=== PATIENT | female | born 1970 | race Caucasian/White ===

== ENCOUNTER 2018-03-27 23:32 | Emergency (ER) | payer SELFPAY ==
--- NOTE | 2018-03-27 23:55 | NUR ---
Patient eloped from facility. ER physician notified. Pt last seen [id number], not triaged, seen by MD, reports she is in a hurry to go home and very afraid.
[2018-03-28] MEDS ORDERED: LEVO137T2 PO (01:59)
== END 2018-03-27 23:58 | disposition left against medical advice (07) ==
LOC: ER 23:35
DX: T74.11XA Adult physical abuse, confirmed, initial encounter (principal)

== ENCOUNTER 2018-03-28 01:20 | Emergency (ER) | payer SELFPAY ==
[~2018-03-28] VITALS: Ht 160 cm; Wt 86.2 kg
[2018-03-28] MEDS ORDERED: LEVO137T2 PO (01:59)
--- NOTE | 2018-03-28 02:10 | NUR ---
Dr. Lopez at bedside for MSE.
--- NOTE | 2018-03-28 02:25 | NUR ---
Pt provided urine, sent to lab.
[2018-03-28 02:34] LABS: *BILIRUBIN,URIN NEGATIVE (NEGATIVE); *BLOOD, URINE NEGATIVE (NEGATIVE); *COLOR,URINE YELLOW (YELLOW); *KETONES,URINE NEGATIVE (NEGATIVE); *PROTEIN,URINE 1+ (NEGATIVE); *UROBILINOGEN,URINE 0.2 E.U./dl (NORMAL); LEUKOCYTE ESTERASE ,URINE NEGATIVE (NEGATIVE); NITRITE, URINE NEGATIVE (NEGATIVE); UGLUCOSE NEGATIVE (NEGATIVE)
[2018-03-28 02:42] LABS: *CLARITY,URINE HAZY (CLEAR)
[2018-03-28 02:44] LABS: *URINE HCG, QUAL NEGATIVE (NEGATIVE); BACTERIA,URINE FEW /HPF (NONE SEEN); MUCUS,URINE FEW /LPF (0-FEW); RBC,URINE 0-3 /HPF (0-3); SQUAMOUS EPITHELIAL CELL,UR MANY /HPF (NONE SEEN); WBC,URINE 0-3 /HPF (0-3)
--- NOTE | 2018-03-28 03:12 | NUR ---
Pt out of ER for CT.
--- NOTE | 2018-03-28 03:23 | NUR ---
Pt back to ER from CT.
[2018-03-28] MEDS ORDERED: ONDANSETRON ODT 4 MG TAB.RAPDIS ONE (03:57)
--- NOTE | 2018-03-28 03:57 | NUR ---
Patient discharged to home in stable conditon. Written and verbal after care instructions given. Patient verbalizes understanding of instructions. Pt ambulated out of ER with steady gait, no acute signs of distress, VSS, all belongings taken.
[2018-03-28] MEDS ORDERED: IBUPROFEN 800 MG TABLET ONE (03:58)
[2018-03-28 03:59] VITALS: BP 113/83
[2018-03-28] MEDS ORDERED: IBUPROFEN 800 MG TABLET PO ONE (04:00)
[2018-03-28] MEDS ORDERED: ONDANSETRON ODT 4 MG TAB.RAPDIS SL ONE (04:00)
== END 2018-03-28 03:59 | disposition home or self-care (01) ==
LOC: ER 01:24
DX: S00.03XA Contusion of scalp, initial encounter (principal); S30.1XXA Contusion of abdominal wall, initial encounter; E03.9 Hypothyroidism, unspecified; Y08.89XA Assault by other specified means, initial encounter; Y93.89 Activity, other specified; Y92.89 Other specified places as the place of occurrence of the external cause; Y99.8 Other external cause status
CPT/HCPCS: 70450; 74176; 81001; 84703; 99285; A4663; Q0162